=== PATIENT | female | born 1985 | race Caucasian/White ===

== ENCOUNTER 2017-01-19 22:43 | Emergency (ER) | payer OTHER ==
[~2017-01-19] VITALS: Ht 172.7 cm; Wt 63.6 kg
[2017-01-19] MEDS ORDERED: FLUORESCEIN (FLUOR-I-STRIPS) 1 MG STRIP OD ONE (23:05)
[2017-01-20] MEDS ORDERED: TETRACAINE 0.5% OPHTHALMIC SOLUTION 4 ML BTL OD ONE (00:15)
[2017-01-20] MEDS ORDERED: NS IR ONE (00:20)
--- NOTE | 2017-01-20 00:45 | NUR ---
Irrigated eye with [address] Parks[address]
[2017-01-20 00:46] VITALS: BP 127/70
== END 2017-01-20 00:48 | disposition home or self-care (01) ==
LOC: ED 22:45
DX: H10.211 Acute toxic conjunctivitis, right eye (principal); T65.6X1A Toxic effect of paints and dyes, not elsewhere classified, accidental (unintentional), initial encounter; Y93.E8 Activity, other personal hygiene; Y92.009 Unspecified place in unspecified non-institutional (private) residence as the place of occurrence of the external cause
CPT/HCPCS: 99283; J7030; 99282